=== PATIENT | male | born 1960 | race Caucasian/White ===

== ENCOUNTER 2017-05-21 03:36 | Emergency (ER) | payer MEDICARE, OTHER ==
[~2017-05-21] VITALS: Ht 185.4 cm; Wt 89.0 kg
[2017-05-21] MEDS ORDERED: NITROGLYCERIN SUBLINGUAL 0.4 MG BOTTLE OF 25. SL PRN (04:00)
[2017-05-21] MEDS ORDERED: ASPIRIN 81 MG TAB.CHEW PO ONE (04:00)
[2017-05-21] MEDS ORDERED: IPRATRPIUM/ALBUTEROL 0.5/2.5MG 3 ML NEBU. NEB ONE (04:00)
[2017-05-21 04:41] LABS: BASO # 0.1 x10^3/uL (0.0-0.2); BASO % 1 % (0-3); EOS # 0.3 x10^3/uL (0.0-0.7); EOS % 3 % (0-3); HEMATOCRIT 34.1 % (39.0-53.0); HEMOGLOBIN 11.5 g/dL (13.0-17.5); LYMPH # 0.7 x10^3/uL (1.0-4.8); LYMPH % 7 % (24-48); MEAN CORPUSCULAR HEMOGLOBIN 32 pg (25-35); MEAN CORPUSCULAR HGB CONC 34 g/dL (31-37); MEAN CORPUSCULAR VOLUME 94 fL (79-100); MONO # 0.5 x10^3/uL (0.0-1.1); MONO % 5 % (0-9); NEUT # 9.1 x10^3uL (1.8-7.7); NEUT % 85 % (31-73); PLATELET COUNT 255 x10^3/uL (140-400); RED BLOOD COUNT 3.62 x10^6/uL (4.30-5.70); RED CELL DISTRIBUTION WIDTH 14.8 % (11.5-14.5); WHITE BLOOD COUNT 10.7 x10^3/uL (4.0-11.0)
[2017-05-21 05:03] LABS: ALBUMIN 3.8 g/dL (3.4-5.0); ALK PHOS 68 U/L (46-116); ALT (SGPT) 21 U/L (16-63); ANION GAP 15 (6-14); AST (SGOT) 23 U/L (15-37); BLOOD UREA NITROGEN 47 mg/dL (8-26); BUN/CREATININE RATIO 5 (6-20); CALCIUM 9.1 mg/dL (8.5-10.1); CARBON DIOXIDE 22 mmol/L (21-32); CHLORIDE 101 mmol/L (98-107); CREATININE 8.6 mg/dL (0.7-1.3); GFR 6.5; GLUCOSE 196 mg/dL (70-99); MAGNESIUM 2.1 mg/dL (1.8-2.4); POTASSIUM 4.4 mmol/L (3.5-5.1); SODIUM 138 mmol/L (136-145); TOTAL BILIRUBIN 0.3 mg/dL (0.2-1.0); TOTAL PROTEIN 7.6 g/dL (6.4-8.2)
--- NOTE | 2017-05-21 05:04 | EKG ---
[address] [address] Test Date: 2017-05-21 Test Time: 03:41:39 Pat Name: RALPH TIJERINA Department: Room: Gender: M Hourly Team Members: MYRIAM : 1960 Requested By: MATHEW COOPER Order Number: [id number] Reading MD: Measurements Intervals [place] Rate: 93 P: 84 IA: 180 QRS: -16 QRSD: 100 T: 134 QT: 388 QTc: 485 Interpretive Statements SINUS RHYTHM LEFTWARD AXIS CONSIDER LEFT VENTRICULAR HYPERTROPHY ST & T ABNORMALITY, CONSIDER HIGH LATERAL ISCHEMIA OR LEFT VENTRICULAR STRAIN ABNORMAL ECG RI6.01 Unconfirmed report No previous ECG available for comparison
[2017-05-21] MEDS ORDERED: IV NORMAL SALINE 250ML 250 ML ONE (05:10)
--- NOTE | 2017-05-21 05:48 | RAD ---
INDICATION: Hypertension, headache
No previous for comparison COMPARISON: None. TECHNIQUE: Axial CT images obtained through the head without intravenous contrast. One or more of the following individualized dose reduction techniques were utilized for this examination: 1. Automated exposure control; 2. Adjustment of the mA and/or kV according to patient size; 3. Use of iterative reconstruction technique. FINDINGS: No intracranial hemorrhage. No midline shift. Basal cisterns patents. Ventricles and sulci are globally prominent. No acute osseous abnormality. Orbits and paranasal sinuses unremarkable. Scattered foci of low attenuation within the white matter. IMPRESSION: 1. No acute intracranial hemorrhage. 2. Scattered regions of low attenuation within the white matter. Non-specific in nature but frequently secondary to chronic small vessel ischemic disease. 3. Prominence of ventricles and sulci which is frequently secondary to age related volume loss. Electronically signed by: Colton Mae MD (05/21/2017 5:45 AM) [facility]
--- NOTE | 2017-05-21 06:09 | PHYS DOC ---
Adult General Chief Complaint Chief Complaint: DYSPNEA/RESPIRATOY DISTRESS HPI HPI Patient is a 57 year old male who presents with shortness of breath. Patient reports acute onset of symptoms around 1999 this evening while at rest. Symptoms progressed this evening. Also has a single episode of substernal chest pain which was brief, completely resolved upon arrival. Denies significant lower extremity edema. He denies fevers or chills, cough, nausea, vomiting, diaphoresis. He has history of end-stage renal disease on hemodialysis Sunday/ Sunday/Sunday, reports compliance, due for dialysis in the morning. Also has history of CHF & hypertension, reports compliance with medications. Review of Systems Review of Systems Constitutional: Denies fever or chills Eyes: Denies change in visual acuity HENT: Denies nasal congestion or sore throat Respiratory: Denies cough or reports shortness of breath Cardiovascular: Reports chest pain, denies edema GI: Denies abdominal pain, nausea, vomiting, bloody stools or diarrhea : Denies dysuria or hematuria Musculoskeletal: Denies back pain or joint pain Integument: Denies rash or skin lesions Neurologic: Denies headache, focal weakness or sensory changes All other systems were reviewed and found to be within normal limits, except as documented in this note. Current Medications Current Medications Current Medications Medications (Trade) Dose Ordered Sig/Stephen Start Time Stop Time Status Last Admin Dose Admin Albuterol/ Ipratropium (Duoneb) 3 ml 1X ONCE 05/21/17 04:00 05/21/17 04:12 DC 05/21/17 04:51 3 ML Aspirin (Children'S Aspirin) 324 mg 1X ONCE 05/21/17 04:00 05/21/17 04:12 DC 05/21/17 04:52 324 MG Fentanyl Citrate (Fentanyl 2ml Vial) 50 mcg PRN Q15MIN PRN 05/21/17 05:15 05/22/17 05:14 05/21/17 05:41 50 MCG Nicardipine HCl (Cardene) 25 mg STK-MED ONCE 05/21/17 05:10 05/21/17 05:11 DC Nicardipine HCl 50 mg/Sodium Chloride 270 ml @ 0 mls/hr CONT PRN 05/21/17 05:15 05/21/17 05:29 251 MLS/HR Nitroglycerin (Nitrostat) 0.4 mg PRN Q5MIN PRN 05/21/17 04:00 05/21/17 04:55 0.4 MG Sodium Chloride 250 ml @ As Directed STK-MED ONCE 05/21/17 05:10 05/21/17 05:11 DC Allergies Allergies Allergies Coded Allergies Type Severity Reaction Last Updated Verified No Known Drug Allergies 05/21/17 No Physical Exam Physical Exam Constitutional: Well developed, well nourished, no acute distress, non-toxic appearance. HENT: Normocephalic, atraumatic, bilateral external ears normal, oropharynx moist, nose normal. Eyes: conjunctiva normal, no discharge. Neck: supple, no stridor. Cardiovascular: RRR, no murmurs Lungs & Thorax: LCTAB, no wheezing, no respiratory distress. few crackles. patient tachypneic/dyspneic at times, but able to talk nonstop for several minutes during encounter. Abdomen: soft, nontender, nondistended. Skin: Warm, dry, no erythema, no rash. Back: No tenderness. Extremities: No tenderness, 1+ edema to bilateral lower extremities, no calf tenderness Neurologic: Alert and oriented X 3, no focal deficits noted. Psychologic: Affect normal, judgement normal, mood normal. Current Patient Data Vital Signs Vital Signs Date Time Temp Pulse Resp B/P (MAP) Pulse Ox O2 Delivery O2 Flow Rate FiO2 05/21/17 04:59 99 Nasal Cannula 2.0 05/21/17 04:55 101 196/115 Lab Results Laboratory Tests Test 05/21/17 04:24 White Blood Count 10.7 x10^3/uL (4.0-11.0) Red Blood Count 3.62 x10^6/uL (4.30-5.70) L Hemoglobin 11.5 g/dL (13.0-17.5) L Hematocrit 34.1 % (39.0-53.0) L Mean Corpuscular Volume 94 fL (79-100) Mean Corpuscular Hemoglobin 32 pg (25-35) Mean Corpuscular Hemoglobin Concent 34 g/dL (31-37) Red Cell Distribution Width 14.8 % (11.5-14.5) H Platelet Count 255 x10^3/uL (140-400) Neutrophils (%) (Auto) 85 % (31-73) H Lymphocytes (%) (Auto) 7 % (24-48) L Monocytes (%) (Auto) 5 % (0-9) Eosinophils (%) (Auto) 3 % (0-3) Basophils (%) (Auto) 1 % (0-3) Neutrophils # (Auto) 9.1 x10^3uL (1.8-7.7) H Lymphocytes # (Auto) 0.7 x10^3/uL (1.0-4.8) L Monocytes # (Auto) 0.5 x10^3/uL (0.0-1.1) Eosinophils # (Auto) 0.3 x10^3/uL (0.0-0.7) Basophils # (Auto) 0.1 x10^3/uL (0.0-0.2) Prothrombin Time 11.0 SEC (9.4-11.4) Prothrombin Time INR 1.1 (0.9-1.1) Sodium Level 138 mmol/L (136-145) Potassium Level 4.4 mmol/L (3.5-5.1) Chloride Level 101 mmol/L (98-107) Carbon Dioxide Level 22 mmol/L (21-32) Anion Gap 15 (6-14) H Blood Urea Nitrogen 47 mg/dL (8-26) H Creatinine 8.6 mg/dL (0.7-1.3) H Estimated GFR (Cockcroft-Gault) 6.5 BUN/Creatinine Ratio 5 (6-20) L Glucose Level 196 mg/dL (70-99) H Calcium Level 9.1 mg/dL (8.5-10.1) Magnesium Level 2.1 mg/dL (1.8-2.4) Total Bilirubin 0.3 mg/dL (0.2-1.0) Aspartate Amino Transferase (AST) 23 U/L (15-37) Alanine Aminotransferase (ALT) 21 U/L (16-63) Alkaline Phosphatase 68 U/L (46-116) Troponin I Quantitative 0.241 ng/mL (0-0.055) H FL-Uib-J-Type Natriuretic Peptide > 51415 pg/mL (0-124) H Total Protein 7.6 g/dL (6.4-8.2) Albumin 3.8 g/dL (3.4-5.0) Albumin/Globulin Ratio 1.0 (1.0-1.7) EKG EKG interpreted by me: NSR rate 93, no ST elevation, T waves inverted without ST depression in 1 & aVL, normal intervals, no ectopy.[] Radiology/Procedures Radiology/Procedures CXR, portable: interpreted by me: cardiomegaly, pulmonary edema.[] Course & Med Decision Making Course & Med Decision Making Pertinent Labs and Imaging studies reviewed. (See chart for details) The patient presents with shortness of breath. He was requiring oxygen 4 L by nasal cannula which is unusual for him. Appears quite dyspneic and tachypneic at times, but able to complete extensive monologue without really developing any symptoms. Blood pressure markedly elevated greater than 200s over 110s. Administered DuoNeb, aspirin and sublingual nitroglycerin. Recommended initiation of nitroglycerin drip when his blood pressure remained elevated. He refused nitro drip, stated in the past it had made him very ill. I think this is the best treatment for pulmonary edema and hypertensive emergency, but at this time will initiate Cardene drip which the patient agrees to receive. Chest x-ray shows pulmonary edema, troponin elevated. Recommend transfer to [facility] for urgent dialysis and ongoing management of blood pressure. Patient agrees with plan of care. Discussed with Dr. Pablito flowers to accept transfer for admission. The patient is being transferred in guarded condition. [] Dragon Disclaimer Dragon Disclaimer This electronic medical record was generated, in whole or in part, using a voice recognition dictation system. Departure Departure: Impression: Primary Impression: Pulmonary edema Additional Impressions: Acute exacerbation of congestive heart failure Elevated troponin Hypertensive emergency Disposition: XFER OTHER Condition: GUARDED Referrals: NON,STAFF (PCP) Problem Qualifiers MATHEW COOPER MD May 21, 2017 06:08
[2017-05-21 07:00] VITALS: BP 131/67
--- NOTE | 2017-05-21 07:13 | RAD ---
Portable chest, 05/21/2017: History: COPD, shortness of breath There is been a previous median sternotomy. A left-sided transvenous pacing device is in place with a single lead extending into the right ventricle. The heart is mildly enlarged. The pulmonary vascularity is prominent. There are moderate, predominantly interstitial opacities in the lungs. There is no evidence of pleural fluid. IMPRESSION: Moderate predominantly interstitial infiltrates most compatible with pulmonary edema due to congestive heart failure.
== END 2017-05-21 07:40 | disposition short-term general hospital (02) ==
LOC: ER 03:36
DX: I13.2 Hypertensive heart and chronic kidney disease with heart failure and with stage 5 chronic kidney disease, or end stage renal disease (principal); I50.9 Heart failure, unspecified; N18.6 End stage renal disease; I16.1 Hypertensive emergency; R79.89 Other specified abnormal findings of blood chemistry; Z99.2 Dependence on renal dialysis
CPT/HCPCS: 36415; 70450; 71010; 80053; 83735; 83880; 84484; 85025; 85610; 93005; 94640; 96365; 96366; 96375; 99285; J3010; J7050; J7620

== ENCOUNTER 2019-05-12 04:26 | Emergency (ER) | payer MEDICARE ==
[~2019-05-12] VITALS: Ht 185.4 cm; Wt 89.0 kg
[~2019-05-12 04:26] MED LIST: ALBU2.5V5 NEB; ALPR0.254 PO; AMLO5TAB10 PO; ASCO500T3 PO; ASPI-612 PO; ATOR20TA58 PO; CALC667S PO; CARV12.547 PO; CLON1PAT3 TD; GLIM4TAB4 PO; HYDR2TAB31 PO; LOSA100T14 PO; MELA3TAB56 PO; NITR0.3T5 SL; OXYC-317 PO; OXYC20TA PO; SERT100T PO; SEVE800T9 PO; TIOT18CA IH
--- NOTE | 2019-05-12 04:35 | PHYS DOC ---
Past History Past Medical History: Anxiety, CAD, CHF, COPD, Diabetes, GI Bleed, Hypertension, NE, Renal Failure, Other Past Surgical History: Coronary Bypass Surgery, Other Alcohol Use: None Drug Use: None Adult General Chief Complaint Chief Complaint: ".. I am just sick... nauseate.. vomiting.. I got a fever.. " I am just fucking sick.. " HPI HPI Patient is a 59 year old male who presents with above history and complaints of fever and chills. Patient also having bouts of nausea and dry heaves. Pt. has hx multiple medical issues. Gets hemodialysis on Wednesdays and Sunday .Pt somewhat a poor historian. Patient denies any specific ill contacts. No recent travel. Patient did not get dialysis on Sunday is due for dialysis this Sunday. Pt. states he has been taking meds as directed. Pt. report taking ASA today. No Tylenol for fever. Pt. complaints of increased edema and pain in Rt. leg. Review of Systems Review of Systems Constitutional: History of fever or chills [] Eyes: Denies change in visual acuity, redness, or eye pain [] HENT: Denies nasal congestion or sore throat [] Respiratory: History of cough and shortness of breath [] Cardiovascular: No additional information not addressed in HPI [] GI: Denies abdominal pain, . History of nausea, vomiting, . The patient denies bloody stools or diarrhea [] : Denies dysuria or hematuria [] Musculoskeletal: Denies back pain or joint pain []Rt. leg pain. Integument: Denies rash or skin lesions [] Neurologic: Denies headache, focal weakness or sensory changes [] Endocrine: Denies polyuria or polydipsia [] All other systems were reviewed and found to be within normal limits, except as documented in this note. Family History Family History Noncontributory Current Medications Current Medications See Nursing for home meds. Allergies Allergies Allergies Coded Allergies Type Severity Reaction Last Updated Verified No Known Drug Allergies 05/21/17 No Physical Exam Physical Exam Constitutional: Moderately acute distress, non-toxic appearance. [] HENT: Normocephalic, atraumatic, bilateral external ears normal, oropharynx moist, mild pharyngeal injection, no oral exudates, nose injected turbinates and clear rhinorrhea Eyes: PERRLA, EOMI, conjunctiva normal, no discharge. [] Neck: Normal range of motion, no tenderness, supple, no stridor. [] Cardiovascular: Tachycardia Heart rate regular rhythm, no murmur []PMI to the left Lungs & Thorax: Bilateral breath sounds equal apex with scattered wheezes throughout auscultation []. Has pacer, Has crackles throughout bases. . Old surgery scar Abdomen: Bowel sounds normal, soft, no tenderness, no masses, no pulsatile masses. [] Old surgery scar Skin: Warm, dry, right leg erythema, right leg rash. [] Back: No tenderness, no CVA tenderness. [] Extremities: Right leg tenderness, no cyanosis, no clubbing, moves ext. on request., bilateral ankle edema. [] Right leg more edema than left. Poor dorsal pedis pulses. Shunt in right arm has good thrill Neurologic: Sedate but oriented X 3, with noxious stimuli, moves extremities on request , decreased plantar sensory function, right sided weakness-chronic Psychologic: Affect flat, judgement normal, mood depressed. EKG EKG My interpretation of EKG shows a sinus tachycardia 111 bpm. Leftward axis. Some nonspecific anterior septal changes. Bimodal P-wave's.[] Radiology/Procedures Radiology/Procedures My interpretation of chest x-ray shows cardiomegaly with patchy interstitial infiltrates consistent with pulmonary edema. Pacer. Post sternal wires. Similar to prior x-ray on file[] Course & Med Decision Making Course & Med Decision Making Pertinent Labs and Imaging studies reviewed. (See chart for details) Discussed presentation, testing and tx. plan with Dr. Antonio. Pt to be transfer to [facility] for further eval. and tx. To get dialysis for end-stage renal disease. Endorse patient at shift change to Dr. Agarwal- he will monitor patient until transferred to [facility] Dr. Antonio Impression: 1. Fever 2. Leukocytosis at 18.6 3. Anemia 10.4 hemoglobin 4. End-stage renal disease- dialysis on Wednesdays and Fridays ( Bun 33/creat 5.2) 5. Pulmonary edema 6. Elevated troponin 0.101 7. DM = Gluc 184 8. Rt. leg Cellulitis 9. Anemia Hgb. 10.,4 10 Malnutrition Alb. 2.9 12. Elevated D-dimer 9.71 13. SIRS 14. Hx COPD [] Dragon Disclaimer Dragon Disclaimer This electronic medical record was generated, in whole or in part, using a voice recognition dictation system. Departure Departure: Disposition: 01 HOME/RESIDENCE PRIOR TO ADM Condition: STABLE Referrals: NON,STAFF (PCP) Flaco Disclaimer This chart was dictated in whole or in part using Voice Recognition software in a busy, high-work load, and often noisy Emergency Department environment. It may contain unintended and wholly unrecognized errors or omissions. Dragon Disclaimer This chart was dictated in whole or in part using Voice Recognition software in a busy, high-work load, and often noisy Emergency Department environment. It may contain unintended and wholly unrecognized errors or omissions. GRETCHEN SCHULTZ MD May 12, 2019 04:35
[2019-05-12] MEDS ORDERED: VANCOMYCIN 1 GM in IV NORMAL SALINE 250ML 250 ML IV ONE ×2 (04:45→05:15)
--- NOTE | 2019-05-12 04:57 | EKG ---
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
[2019-05-12] MEDS ORDERED: IV RINGERS SOLUTION,LACTATED 1,000 ML IV SCH (05:15)
[2019-05-12] MEDS ORDERED: IPRATRPIUM/ALBUTEROL 0.5/2.5MG 3 ML NEBU. NEB ONE (05:15)
[2019-05-12] MEDS ORDERED: methylPREDNISolone SOD SUCC PF 125 MG/2 ML VIAL. IM ONE (05:15)
[2019-05-12] MEDS ORDERED: FAMOTIDINE 20 MG/2 ML VIAL IVP ONE (05:15)
[2019-05-12] MEDS ORDERED: ACETAMINOPHEN 500 MG TABLET PO ONE (05:15)
[2019-05-12] MEDS ORDERED: cefTRIAXone IM 1 GM VIAL IM ONE (05:15)
[2019-05-12] MEDS ORDERED: ONDANSETRON ODT 4 MG TAB.RAPDIS PO ONE (05:30)
[2019-05-12] MEDS ORDERED: IV NORMAL SALINE 1,000ML 1,000 ML IV ONE (05:30)
[2019-05-12] MEDS ORDERED: IV NORMAL SALINE 500ML 500 ML ONE (05:44)
[2019-05-12] MEDS ORDERED: VANCOMYCIN 1 GM VIAL. ONE (05:44)
[2019-05-12] MEDS ORDERED: VANCOMYCIN 1.5 GM in IV NORMAL SALINE 500ML 500 ML IV ONE (06:00)
[2019-05-12 06:05] LABS: BASO # 0.1 x10^3/uL (0.0-0.2); BASO % 0 % (0-3); EOS % 0 % (0-3); HEMATOCRIT 32.3 % (39.0-53.0); HEMOGLOBIN 10.4 g/dL (13.0-17.5); LYMPH # 0.4 x10^3/uL (1.0-4.8); LYMPH % 2 % (24-48); MEAN CORPUSCULAR HEMOGLOBIN 29 pg (25-35); MEAN CORPUSCULAR HGB CONC 32 g/dL (31-37); MEAN CORPUSCULAR VOLUME 89 fL (79-100); MONO % 5 % (0-9); NEUT # 17.1 x10^3uL (1.8-7.7); NEUT % 92 % (31-73); PLATELET COUNT 361 x10^3/uL (140-400); RED BLOOD COUNT 3.61 x10^6/uL (4.30-5.70); RED CELL DISTRIBUTION WIDTH 16.9 % (11.5-14.5); WHITE BLOOD COUNT 18.6 x10^3/uL (4.0-11.0)
[2019-05-12 06:17] LABS: ALBUMIN 2.9 g/dL (3.4-5.0); CALCIUM 8.3 mg/dL (8.5-10.1); CREATININE 5.2 mg/dL (0.7-1.3); DIRECT BILIRUBIN 0.3 mg/dL (0.0-0.2); GFR 11.5; MAGNESIUM 1.5 mg/dL (1.8-2.4); POTASSIUM 3.7 mmol/L (3.5-5.1); TOTAL BILIRUBIN 0.6 mg/dL (0.2-1.0); TOTAL PROTEIN 7.2 g/dL (6.4-8.2)
[2019-05-12 06:20] LABS: BGAS PH 7.64 (7.35-7.46)
[2019-05-12 06:28] LABS: % BANDS 11 % (0-9); % LYMPHS 1 % (24-48); % MONOS 5 % (0-10); % SEGS 83 % (35-66)
[2019-05-12 06:29] LABS: ANISOCYTOSIS SLIGHT; PLT ESTIMATE ADEQUATE (ADEQUATE); POLYCHROMASIA SLIGHT
[2019-05-12 06:30] LABS: TOXIC GRANULATION SLIGHT
[2019-05-12 06:31] LABS: OVALOCYTES OCC; TEAR DROP CELLS OCC
[2019-05-12] MEDS ORDERED: HEPARIN for SUB-Q USE 5,000 UNIT/ML VIAL. SQ ONE (07:00)
[2019-05-12] MEDS ORDERED: NITROGLYCERIN OINT 1 GM PACKET. TP ONE (07:00)
[2019-05-12 07:57] VITALS: BP 136/68
--- NOTE | 2019-05-12 08:13 | RAD ---
Study: PORTABLE CHEST 1V Indication: Cough. Comparison: 03/17/2019 Findings: Left chest wall pacer/AICD. Status post median sternotomy. Coronary stents noted. The cardiomediastinal silhouette is prominent in size. Plethoric central vascular structures. No large effusion. No pneumothorax or lobar consolidation. Increased interstitial markings bilaterally. Impression: Cardiomegaly and prominent central vascular structures however without findings of overt failure. Increased interstitial markings could represent a component of mild pulmonary edema and/or related to chronic lung changes but are collectively similar to the comparison. Electronically signed by: FERMÍN MENDOZA MD (05/12/2019 8:10 AM) [facility]
[2019-05-12 08:25] LABS: INFLUENZA A PATIENT NEGATIVE (NEGATIVE); INFLUENZA B PATIENT NEGATIVE (NEGATIVE)
== END 2019-05-12 08:48 | disposition short-term general hospital (02) ==
LOC: ER 04:26
DX: E11.22 Type 2 diabetes mellitus with diabetic chronic kidney disease (principal); I13.2 Hypertensive heart and chronic kidney disease with heart failure and with stage 5 chronic kidney disease, or end stage renal disease; I50.9 Heart failure, unspecified; N18.6 End stage renal disease; D72.829 Elevated white blood cell count, unspecified; D64.9 Anemia, unspecified; R79.89 Other specified abnormal findings of blood chemistry; L03.115 Cellulitis of right lower limb; E46 Unspecified protein-calorie malnutrition; R65.10 Systemic inflammatory response syndrome (SIRS) of non-infectious origin without acute organ dysfunction; R11.2 Nausea with vomiting, unspecified; J44.9 Chronic obstructive pulmonary disease, unspecified; I25.810 Atherosclerosis of coronary artery bypass graft(s) without angina pectoris; I25.2 Old myocardial infarction; Z99.2 Dependence on renal dialysis; Z68.25 Body mass index [BMI] 25.0-25.9, adult
CPT/HCPCS: 36415; 36600; 71045; 80048; 80076; 82550; 82803; 83605; 83690; 83735; 83880; 84443; 84484; 85007; 85025; 85379; 85610; 85651; 85730; 87040; 87804; 93005; 94640; 96361; 96365; 96366; 96372; 96375; 99285; J0696; J1644; J2930; J3370; J3490; J7040; J7620; J7030

== ENCOUNTER 2019-07-13 05:56 | Emergency (ER) | payer MEDICARE ==
[~2019-07-13] VITALS: Ht 182.9 cm; Wt 92.5 kg
[~2019-07-13 05:56] MED LIST changes: -GLIM4TAB4 PO; +GLIM4TAB8 PO
[2019-07-13] MEDS ORDERED: IPRATROPIUM BROMIDE 0.5 MG/2.5 ML NEBU. ONE (06:17)
[2019-07-13] MEDS ORDERED: IPRATRPIUM/ALBUTEROL 0.5/2.5MG 3 ML NEBU. NEB ONE (06:30)
[2019-07-13] MEDS ORDERED: oxyCODONE/APAP 10/325 1 TAB TABLET PO ONE ×2 (06:45→08:00)
--- NOTE | 2019-07-13 06:47 | RAD ---
EXAM: AP View of the chest DATE: 07/13/2019 6:16 AM INDICATION: Shortness of air COMPARISON: 05/12/2019, 05/21/2017 FINDINGS: Cardiac generator pack obscures a portion of the left chest with leads in stable position. The heart is mildly enlarged. Mediastinal and hilar contours are stable. Patchy opacities medial right lung base likely atelectasis. Bilateral interstitial prominence. Trace left pleural effusion. No pneumothorax. IMPRESSION: 1. Bilateral interstitial prominence with trace left pleural effusion and cardiomegaly may be seen with pulmonary edema. 2. Patchy opacities medial right lung base are favored to represent atelectasis. Electronically signed by: Chester Hemphill MD (07/13/2019 6:44 AM) [facility]
[2019-07-13 08:03] LABS: BASO % 0 % (0-3); EOS # 0.5 x10^3/uL (0.0-0.7); EOS % 5 % (0-3); HEMATOCRIT 35.4 % (39.0-53.0); HEMOGLOBIN 11.4 g/dL (13.0-17.5); LYMPH # 0.9 x10^3/uL (1.0-4.8); LYMPH % 10 % (24-48); MEAN CORPUSCULAR HEMOGLOBIN 29 pg (25-35); MEAN CORPUSCULAR HGB CONC 32 g/dL (31-37); MEAN CORPUSCULAR VOLUME 91 fL (79-100); MONO # 0.9 x10^3/uL (0.0-1.1); MONO % 10 % (0-9); NEUT # 6.8 x10^3uL (1.8-7.7); NEUT % 75 % (31-73); PLATELET COUNT 256 x10^3/uL (140-400); RED CELL DISTRIBUTION WIDTH 17.6 % (11.5-14.5)
[2019-07-13 08:10] LABS: CREATININE 8.3 mg/dL (0.7-1.3); GFR 6.7; POTASSIUM 4.2 mmol/L (3.5-5.1)
[2019-07-13 08:24] LABS: ALBUMIN 3.4 g/dL (3.4-5.0); ALBUMIN/GLOBULIN RATIO 0.7 (1.0-1.7); TOTAL BILIRUBIN 0.5 mg/dL (0.2-1.0)
--- NOTE | 2019-07-13 08:26 | PHYS DOC ---
Past History Past Medical History: Anxiety, CAD, CHF, COPD, Diabetes, GI Bleed, Hypertension, MD, Renal Disease, Renal Failure, Vascular Disease, Other Additional Past Medical Histor: hx of hyperkalemia; wound rt heel Past Surgical History: Coronary Bypass Surgery, Other Additional Past Surgical Histo: RIGHT ARM FISTULA, DUAL PACEMAKER; lillie leg fem- pop bypass Alcohol Use: None Drug Use: None Adult General Chief Complaint Chief Complaint: DYSPNEA/RESPIRATOY DISTRESS HPI HPI Patient is a 59-year-old male who presents with shortness of breath. Patient has history of end-stage renal disease on dialysis, CAD, MD, CABG, for vascular disease, CHF and nonhealing right heal wound presents with progressive shortness breath over the past 12 hours especially while sleeping. Patient worse supplemental oxygen at night reports increased oxygen use. Reports feeling hot but denies fever chills, nausea vomiting and sweats. Denies productive cough, [] Review of Systems Review of Systems ROS as per HPI All other systems were reviewed and found to be within normal limits, except as documented in this note. Current Medications Current Medications Current Medications Medications (Trade) Dose Ordered Sig/Stephen Start Time Stop Time Status Last Admin Dose Admin Albuterol/ Ipratropium (Duoneb) 3 ml 1X ONCE 07/13/19 06:30 07/13/19 06:35 DC 07/13/19 06:24 3 ML Ipratropium [place] (Atrovent) 0.5 mg STK-MED ONCE 07/13/19 06:17 07/13/19 06:17 DC Oxycodone/ Acetaminophen (Percocet 10/325) 1 tab 1X ONCE 07/13/19 08:00 07/13/19 08:01 UNV Allergies Allergies Allergies Coded Allergies Type Severity Reaction Last Updated Verified NSAIDS (Non-Steroidal Anti-Inflamma Adverse Reaction Severe 07/13/19 Yes Physical Exam Physical Exam Constitutional: Chronically ill-appearing, increased work of breathing but no distress. Sitting upright in bed.. [] HENT: Normocephalic, atraumatic, bilateral external ears normal, oropharynx moist,, nose normal. [] Eyes: PERRLA, EOMI, conjunctiva normal, no discharge. [] Neck: Normal range of motion, no tenderness, supple, no stridor. [] Cardiovascular:Heart rate regular rhythm, no murmur [] Lungs & Thorax: Mild tachypnea, coarse rales throughout lung [place][] Abdomen: Bowel sounds normal, soft, no tenderness. [] Skin: Warm, dry. [] Back: No tenderness, no CVA tenderness. [] Extremities: Right leg swelling, Righl ulcer.[] Neurologic: Alert and oriented X 3, normal motor function, normal sensory function, no focal deficits noted. [] Psychologic: Affect normal, judgement normal, mood normal. [] Current Patient Data Vital Signs Vital Signs Date Time Temp Pulse Resp B/P (MAP) Pulse Ox O2 Delivery O2 Flow Rate FiO2 07/13/19 06:22 97 Nasal Cannula 2.0 07/13/19 06:00 98.0 91 36 191/103 (132) Lab Results Laboratory Tests Test 07/13/19 06:18 07/13/19 07:37 Glucose (Fingerstick) 180 mg/dL (70-99) H White Blood Count 9.0 x10^3/uL (4.0-11.0) Red Blood Count 3.90 x10^6/uL (4.30-5.70) L Hemoglobin 11.4 g/dL (13.0-17.5) L Hematocrit 35.4 % (39.0-53.0) L Mean Corpuscular Volume 91 fL (79-100) Mean Corpuscular Hemoglobin 29 pg (25-35) Mean Corpuscular Hemoglobin Concent 32 g/dL (31-37) Red Cell Distribution Width 17.6 % (11.5-14.5) H Platelet Count 256 x10^3/uL (140-400) Neutrophils (%) (Auto) 75 % (31-73) H Lymphocytes (%) (Auto) 10 % (24-48) L Monocytes (%) (Auto) 10 % (0-9) H Eosinophils (%) (Auto) 5 % (0-3) H Basophils (%) (Auto) 0 % (0-3) Neutrophils # (Auto) 6.8 x10^3uL (1.8-7.7) Lymphocytes # (Auto) 0.9 x10^3/uL (1.0-4.8) L Monocytes # (Auto) 0.9 x10^3/uL (0.0-1.1) Eosinophils # (Auto) 0.5 x10^3/uL (0.0-0.7) Basophils # (Auto) 0.0 x10^3/uL (0.0-0.2) Sodium Level 139 mmol/L (136-145) Potassium Level 4.2 mmol/L (3.5-5.1) Chloride Level 96 mmol/L (98-107) L Carbon Dioxide Level 28 mmol/L (21-32) Anion Gap 15 (6-14) H Blood Urea Nitrogen 40 mg/dL (8-26) H Creatinine 8.3 mg/dL (0.7-1.3) H Estimated GFR (Cockcroft-Gault) 6.7 BUN/Creatinine Ratio 5 (6-20) L Glucose Level 204 mg/dL (70-99) H Calcium Level 8.0 mg/dL (8.5-10.1) L Total Bilirubin Pending Aspartate Amino Transferase (AST) Pending Alanine Aminotransferase (ALT) Pending Alkaline Phosphatase Pending Troponin I Quantitative 0.184 ng/mL (0-0.055) H Total Protein Pending Albumin Pending Albumin/Globulin Ratio Pending EKG EKG [EKG: Sinus rhythm, rate 89, no acute ST-T wave changes, QTC 498] Radiology/Procedures Radiology/Procedures [Chest x-ray: Pulmonary vascular congestion with cardiomegaly per radiology report] Course & Med Decision Making Course & Med Decision Making Pertinent Labs and Imaging studies reviewed. (See chart for details) [Patient with shortness of breath with volume overload. Patient last completed dialysis 2 days ago. Oxycodone given for chronic leg pain. Dr. Martin accepts patient transfer to [facility]. Nephrology notified of need for dialysis.] Dragon Disclaimer Dragon Disclaimer This electronic medical record was generated, in whole or in part, using a voice recognition dictation system. Departure Departure: Impression: Primary Impression: Dyspnea Additional Impressions: Pulmonary vascular congestion End-stage renal disease on hemodialysis Disposition: ADMITTED INPATIENT Condition: STABLE Referrals: PCP,NO (PCP) Problem Qualifiers GUILLERMINA WADE DO Jul 13, 2019 08:25
[2019-07-13 09:48] VITALS: BP 171/95
--- NOTE | 2019-07-13 17:25 | EKG ---
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
== END 2019-07-13 10:20 | disposition short-term general hospital (02) ==
LOC: ER 05:56
DX: R06.82 Tachypnea, not elsewhere classified (principal); R09.89 Other specified symptoms and signs involving the circulatory and respiratory systems; N18.6 End stage renal disease; F41.9 Anxiety disorder, unspecified; I25.10 Atherosclerotic heart disease of native coronary artery without angina pectoris; I50.9 Heart failure, unspecified; J44.9 Chronic obstructive pulmonary disease, unspecified; E11.9 Type 2 diabetes mellitus without complications; I10 Essential (primary) hypertension; I25.2 Old myocardial infarction; Z98.890 Other specified postprocedural states; Z95.0 Presence of cardiac pacemaker; Z99.2 Dependence on renal dialysis; Z88.6 Allergy status to analgesic agent
CPT/HCPCS: 36415; 71045; 80053; 82947; 84484; 85025; 87040; 93005; 94640; 99285; J7620

== ENCOUNTER 2019-07-21 21:35 | Emergency (ER) | payer MEDICARE ==
[~2019-07-21] VITALS: Ht 182.9 cm; Wt 81.2 kg
--- NOTE | 2019-07-21 21:44 | PHYS DOC ---
Past History Past Medical History: Anxiety, CAD, CHF, COPD, Diabetes, GI Bleed, Hypertension, CA, Renal Disease, Renal Failure, Vascular Disease, Other Additional Past Medical Histor: hx of hyperkalemia; wound rt heel Past Surgical History: Coronary Bypass Surgery, Other Additional Past Surgical Histo: RIGHT ARM FISTULA, DUAL PACEMAKER; lillie leg fem- pop bypass Alcohol Use: None Drug Use: None Adult General Chief Complaint Chief Complaint: " .. My feet hurt. ".." I hurting so bad tonight... ".. I know I got bad circulation.. I ve had stents and repair .. HPI HPI Patient is a 59 year old male who presents with above hx and complaints of bilateral pain in feet. Patient rates his lower leg pain as 20 out of 10. Patient has significant history for severe peripheral vascular disease. Patient also has end-stage renal failure with dialysis treatment 3 x week. Patient recently discharge from [facility] after increased weakness and and pulmonary edema.. Patient has no history of COPD, hypertension, diabetes, and prior episodes of DVT and arterial stenosis arteries and lower legs. Patient does have a splint on right lower leg. Patient currently bilateral lower legs have minimal capillary refill in toes. Patient states he's been compliant with his medications. Patient states he no longer smokes. Follow s with Dr. Espinosa Review of Systems Review of Systems Constitutional: Denies fever or chills [] Eyes: Denies change in visual acuity, redness, or eye pain [] HENT: Denies nasal congestion or sore throat [] Respiratory: Denies cough or shortness of breath [] Cardiovascular: No additional information not addressed in HPI [] GI: Denies abdominal pain, nausea, vomiting, bloody stools or diarrhea [] : Denies dysuria or hematuria [] Musculoskeletal: Denies back pain or joint pain []complaints of severe lower leg and feet pain Integument: Denies rash or skin lesions [] Neurologic: Denies headache, focal weakness or sensory changes [] Endocrine: Denies polyuria or polydipsia [] All other systems were reviewed and found to be within normal limits, except as documented in this note. Family History Family History Noncontributory to presentation Current Medications Current Medications See nursing for home medications Allergies Allergies Allergies Coded Allergies Type Severity Reaction Last Updated Verified NSAIDS (Non-Steroidal Anti-Inflamma Adverse Reaction Severe 07/13/19 Yes Physical Exam Physical Exam Constitutional: in acute distress, non-toxic appearance. [] HENT: Normocephalic, atraumatic, bilateral external ears normal, oropharynx moist, no oral exudates, nose normal. [] Eyes: PERRLA, EOMI, conjunctiva normal, no discharge. [] Neck: Normal range of motion, no tenderness, supple, no stridor. [] Cardiovascular: Tachycardia Heart rate regular rhythm, no murmur [] Lungs & Thorax: Bilateral breath sounds equal apex with scattered wheezes on auscultation [] Abdomen: Bowel sounds normal, soft, no tenderness, no masses, no pulsatile masses. Old surgical scar Skin: Warm, dry, no erythema, no rash. [] Venous stasis changes in lower limbs Back: No tenderness, no CVA tenderness. [] Extremities: Bilateral lower limb tenderness, no cyanosis, no clubbing, ROM intact, right leg edema. [] Has good thrill in right forearm AV shunt Neurologic: Alert and oriented X 3, moves all extremities on request, decreased distal sensory function in feet, no new focal deficits per patient Psychologic: Affect anxious, judgement normal, mood depressed. EKG EKG Dilatation EKG shows a sinus rhythm at 78 bpm. Does have left axis deviation and a fascicular block. No findings acute STEMI of contralateral changes. Does have slightly prolonged QT interval at 4:30 milliseconds and QTC at 497 ms Radiology/Procedures Radiology/Procedures [][place] [address] IMAGING REPORT Signed PATIENT: RALPH TIJERINA ACCOUNT: [id number] : 1960 LOCATION: ER AGE: 59 SEX: M EXAM STATUS: PRE ER ORD. PHYSICIAN: GRETCHEN SCHULTZ MD REASON: RENAL FAILURE, DIALYSIS, SWELLING. PROCEDURE: CHEST PA & LATERAL CHEST PA LATERAL Technique: PA and lateral views of the chest were obtained. Clinical History: Renal failure and swelling Comparison: July 13, 2019. Findings: The heart is top normal limits in size. The pulmonary vessels appear preserved reticular opacities of lungs. Median sternotomy wires and left-sided defibrillator again seen. The lungs are hyperinflated. Impression: Reticular opacities unchanged since the recent chest x-ray but slightly increased from May 24, 2018. This is likely chronic pulmonary fibrosis with superimposition of mild fluid overload versus atypical pneumonia. Electronically signed by: Chauncey Combs III, MD (07/22/2019 12:03 AM) [id number] DICTATED AND SIGNED BY: CHAUNCEY COMBS III, MD DATE: 07/22/19 0003 CC: GRETCHEN SCHULTZ MD; SUDHAKAR ESPINOSA ~ Ultrasound and Doppler pending at shift change Course & Med Decision Making Course & Med Decision Making Pertinent Labs and Imaging studies reviewed. (See chart for details) Ultrasound and Doppler pending at shift change as well as some labs-CBC Dr. Archer will make final disposition on patient.- Impression- 1. Complaints of bilateral lower leg pain-suspect secondary to spur severe peripheral vascular disease 2. History of severe Peripheral vascular disease and lower limbs 3. End-stage renal disease with dialysis 3 times a week 4. Pulmonary edema 5. CHF-BNP 40,709 6. Elevated d-dimer 9.71 7. Review and 40 creatinine 8.3 8. Diabetes glucose 264 [] Dragon Disclaimer Dragon Disclaimer This electronic medical record was generated, in whole or in part, using a voice recognition dictation system. Departure Departure: Disposition: HOME/RESIDENCE PRIOR TO ADM Condition: STABLE Referrals: SUDHAKAR ESPINOSA (PCP) Flaco Disclaimer This chart was dictated in whole or in part using Voice Recognition software in a busy, high-work load, and often noisy Emergency Department environment. It may contain unintended and wholly unrecognized errors or omissions. GRETCHEN SCHULTZ MD Jul 21, 2019 21:44
[2019-07-21] MEDS ORDERED: ENOXAPARIN ** NOTE DOSE ** SYRINGE SQ ONE (23:15)
[2019-07-21] MEDS ORDERED: IV RINGERS SOLUTION,LACTATED 1,000 ML IV SCH (23:30)
[2019-07-21] MEDS ORDERED: MORPHINE SULFATE 10 MG/ML SYRINGE. SQ ONE (23:30)
[2019-07-21] MEDS ORDERED: HEPARIN 25,000UTS/250ML PREMIX 250 ML IV PRN (23:45)
[2019-07-21] MEDS ORDERED: HEPARIN for IV BOLUS 10,000 UNIT/10 ML VIAL. IV PRN ×3 (23:45)
[2019-07-21] MEDS ORDERED: ANTI-COAG MONITOR BY PHARMACY. MC PRN (23:45)
[2019-07-22] MEDS ORDERED: HEPARIN for IV BOLUS 10,000 UNIT/10 ML VIAL. IV ONE
--- NOTE | 2019-07-22 00:06 | RAD ---
CHEST PA LATERAL Technique: PA and lateral views of the chest were obtained. Clinical History: Renal failure and swelling Comparison: July 13, 2019. Findings: The heart is top normal limits in size. The pulmonary vessels appear preserved reticular opacities of lungs. Median sternotomy wires and left-sided defibrillator again seen. The lungs are hyperinflated. Impression: Reticular opacities unchanged since the recent chest x-ray but slightly increased from May 24, 2018. This is likely chronic pulmonary fibrosis with superimposition of mild fluid overload versus atypical pneumonia. Electronically signed by: Yonas Soares III, MD (07/22/2019 12:03 AM) [id number]
--- NOTE | 2019-07-22 02:05 | EKG ---
[address] [address] Test Date: 2019-07-22 Test Time: 01:10:31 Pat Name: RALPH TIJERINA Department: Room: Gender: M Manager Property: : 1960 Requested By: GRETCHEN SCHULTZ Order Number: [id number] Reading MD: Measurements Intervals Sawyer Rate: 78 P: -61 DC: 148 QRS: -38 QRSD: 102 T: 152 QT: 432 QTc: 497 Interpretive Statements SINUS RHYTHM ABNORMAL LEFT AXIS DEVIATION LEFT ANTERIOR FASCICULAR BLOCK LVH WITH REPOLARIZATION ABNORMALITY QRS(T) CONTOUR ABNORMALITY CONSIDER ANTEROSEPTAL MYOCARDIAL DAMAGE PROLONGED QT ABNORMAL ECG RI6.01 No previous ECG available for comparison
[2019-07-22] MEDS ORDERED: MORPHINE SULFATE 10 MG/ML SYRINGE. SQ ONE (05:45)
[2019-07-22 07:20] LABS: BASO # 0.1 x10^3/uL (0.0-0.2); BASO % 1 % (0-3); EOS # 0.4 x10^3/uL (0.0-0.7); EOS % 5 % (0-3); HEMOGLOBIN 12.4 g/dL (13.0-17.5); LYMPH # 1.2 x10^3/uL (1.0-4.8); LYMPH % 13 % (24-48); MEAN CORPUSCULAR HEMOGLOBIN 29 pg (25-35); MEAN CORPUSCULAR HGB CONC 32 g/dL (31-37); MEAN CORPUSCULAR VOLUME 91 fL (79-100); MONO % 12 % (0-9); NEUT # 5.9 x10^3uL (1.8-7.7); NEUT % 68 % (31-73); PLATELET COUNT 346 x10^3/uL (140-400); RED BLOOD COUNT 4.29 x10^6/uL (4.30-5.70); WHITE BLOOD COUNT 8.7 x10^3/uL (4.0-11.0)
[2019-07-22 07:32] LABS: ANION GAP 17 (6-14); BLOOD UREA NITROGEN 44 mg/dL (8-26); CALCIUM 8.4 mg/dL (8.5-10.1); CARBON DIOXIDE 25 mmol/L (21-32); CHLORIDE 100 mmol/L (98-107); CREATININE 7.1 mg/dL (0.7-1.3); GLUCOSE 129 mg/dL (70-99); SODIUM 142 mmol/L (136-145)
[2019-07-22 07:44] LABS: ALBUMIN 3.7 g/dL (3.4-5.0); ALK PHOS 136 U/L (46-116); ALT (SGPT) 33 U/L (16-63); AST (SGOT) 26 U/L (15-37); DIRECT BILIRUBIN 0.2 mg/dL (0.0-0.2); LIPASE 308 U/L (73-393); MAGNESIUM 2.2 mg/dL (1.8-2.4); TOTAL BILIRUBIN 0.6 mg/dL (0.2-1.0); TOTAL PROTEIN 8.2 g/dL (6.4-8.2)
[2019-07-22] MEDS ORDERED: MORPHINE SULFATE 2 MG/ML DISP.SYRIN. IV ONE ×2 (09:15→12:15)
--- NOTE | 2019-07-22 10:23 | RAD ---
VENOUS LOWER EXT BILATERAL History: Lower extremity pain and swelling. Comparison: None. Discussion: Multiple longitudinal and transverse high resolution real-time images of the venous system of bilateral lower extremity were obtained with color and Doppler sampling. The common femoral, superficial femoral, popliteal and proximal calf veins are all patent and demonstrate normal flow and compressibility. Normal respiratory phasicity and augmentation is present. Right lower extremity subcutaneous edema. Impression: 1. No evidence of deep vein thrombosis. Electronically signed by: Gaston Cutler DO (07/22/2019 10:20 AM) [id number]
--- NOTE | 2019-07-22 10:30 | RAD ---
DUPLEX LOWER EXTREMITY BILAT Indication: Bilateral lower extremity pain. History of femoral popliteal bypass bilaterally. Diabetes. Comparison: CT angiogram May 15, 2019. Procedure: Real-time grayscale, color flow Doppler, and Doppler spectral waveform analysis of the arterial system of the lower extremity is performed. Findings: Right lower extremity: Significant elevated velocity within the right common femoral artery with monophasic waveform just proximal to the graft. Elevated velocity within the proximal right bypass graft measures 227 cm/s. The graft is patent. Monophasic waveform within the right popliteal and posterior tibial arteries. Elevated velocity within the right posterior tibial artery measures 191 cm/s, indicating 30-49 percent stenosis. The distal posterior tibial, peroneal, anterior tibial and dorsalis pedis arteries are not identified. [place] right superficial femoral artery. Left lower extremity: Mildly elevated velocity within the left common femoral artery measures 1 85 cm/s. Patent left deep femoral artery. Patent left artery bypass graft. Patent left popliteal and posterior tibial arteries. Elevated velocity within the left anterior tibial artery measures 170 cm/s, indicating 30-49 percent stenosis. The left peroneal and dorsalis pedis arteries are not identified. [place] left superficial femoral artery. IMPRESSION: 1. Patent bilateral femoral popliteal artery bypass grafts. 2. Elevated velocity within the right common femoral artery just proximal to the bypass graft, indicating 95-99 percent stenosis. 3. 50-75 percent stenosis of the right proximal bypass graft. 4. Right posterior tibial, peroneal, anterior tibial and dorsalis pedis arteries not well identified, may indicate slow flow or occlusion. CT angiogram can further assess if clinically indicated. 5. Left peroneal and dorsalis pedis arteries not identified, may indicate slow flow or occlusion. Electronically signed by: Gaston Cutlre DO (07/22/2019 10:27 AM) [email or web address]
[2019-07-22 12:23] VITALS: BP 181/98
== END 2019-07-22 13:05 | disposition short-term general hospital (02) ==
LOC: ER 21:35
DX: M79.671 Pain in right foot (principal); M79.672 Pain in left foot; J81.1 Chronic pulmonary edema; R79.1 Abnormal coagulation profile; I13.2 Hypertensive heart and chronic kidney disease with heart failure and with stage 5 chronic kidney disease, or end stage renal disease; E11.22 Type 2 diabetes mellitus with diabetic chronic kidney disease; N18.6 End stage renal disease; I50.9 Heart failure, unspecified; Z99.2 Dependence on renal dialysis; I25.10 Atherosclerotic heart disease of native coronary artery without angina pectoris; J44.9 Chronic obstructive pulmonary disease, unspecified; I25.2 Old myocardial infarction; Z95.1 Presence of aortocoronary bypass graft; Z88.8 Allergy status to other drugs, medicaments and biological substances
CPT/HCPCS: 36415; 71046; 80048; 80076; 82550; 83690; 83735; 83880; 84443; 84484; 85025; 85379; 85610; 85730; 93005; 93925; 93970; 94640; 96372; 96374; 96375; 96376; 99285; J1644; J2270; J7120

== ENCOUNTER 2019-07-26 19:39 | Emergency (ER) | payer MEDICARE ==
[~2019-07-26] VITALS: Ht 182.9 cm; Wt 96.3 kg
--- NOTE | 2019-07-26 19:44 | PHYS DOC ---
Past History Past Medical History: Anemia, Anxiety, CAD, CHF, COPD, Diabetes, GI Bleed, Hypertension, [place], Renal Disease, Renal Failure, Vascular Disease, Other Additional Past Medical Histor: hx of hyperkalemia; wound rt heel Past Surgical History: Angioplasty, Coronary Bypass Surgery, Other Additional Past Surgical Histo: RIGHT ARM FISTULA, DUAL PACEMAKER; lillie leg fem- pop bypass Alcohol Use: None Drug Use: None Adult General Chief Complaint Chief Complaint: LOWER EXTREMITY EDEMA... " I hurting so bad.. my legs.. and short of breath.. I did keep my hemodialysis.. ".." I more short of breath.. I did not get all my Hemodialysis .. treatment because my BP keep falling..." HPI HPI Patient is a 59 year old male who presents with above hx and complaints dyspnea, increased lower leg edema, increased lower leg pains, and general malaise. She has history of extensive medical issues anxiety, coronary artery disease, CHF, COPD, diabetes, GI bleeds, hypertension, myocardial infarction, renal disease on hemodialysis, peripheral vascular disease that is severe, pulmonary edema, vascular ulcer on right heel, and generalized deconditioned. Patient has multiple emergency room visits for similar presentations. Patient recently admitted at [facility] on transfer from [facility]. Patient gets hemodialysis on Wednesdays and Fridays. Patient advised this did not receive these complete dialysis treatment on Sunday because of dropping blood pressures. Patient denies noncompliance with meds or diet. Patient normally follows with Dr. Still. Patient was seen in the emergency room on 07/21 2019 by this physician at that time he had similar complaints of bilateral feet pain. Patient rates his pain as 1010 and has not had anything improved the pain. Patient has had previous stents and bypass surgeries to lower legs for peripheral vascular disease. Review of Systems Review of Systems Constitutional: Denies fever or chills [] Eyes: Denies change in visual acuity, redness, or eye pain [] HENT: Denies nasal congestion or sore throat [] Respiratory: Complaints of dyspnea and increased shortness of breath Cardiovascular: No additional information not addressed in HPI [] GI: Denies abdominal pain, nausea, vomiting, bloody stools or diarrhea [] : Denies dysuria or hematuria [] Musculoskeletal: Complaints of lower leg pain Integument: Denies rash or skin lesions [] Neurologic: Denies headache, focal weakness or sensory changes [] Endocrine: Denies polyuria or polydipsia [] All other systems were reviewed and found to be within normal limits, except as documented in this note. Family History Family History Noncontributory to presentation. Current Medications Current Medications See nursing for home meds. Allergies Allergies Allergies Coded Allergies Type Severity Reaction Last Updated Verified NSAIDS (Non-Steroidal Anti-Inflamma Adverse Reaction Severe 07/13/19 Yes Physical Exam Physical Exam Constitutional: In moderate acute distress, non-toxic appearance. [] HENT: Normocephalic, atraumatic, bilateral external ears normal, oropharynx moist, no oral exudates, nose normal. [] Eyes: PERRLA, EOMI, conjunctiva normal, no discharge. [] Neck: Normal range of motion, no tenderness, supple, no stridor. [] JVD in sitting position Cardiovascular: Irregular Heart rate and irregular regular rhythm, no murmur []PMI to the left. Bedside monitor shows occasional PVCs, PACs, and rhythm at time appears to be A. fib like. Lungs & Thorax: Bilateral breath sounds equal apex with scattered wheezing throughout auscultation . Patient [has crackles throughout with marked increase in bilateral]basilar areas. ( Sounds worse than exam on 07/21 exam. Abdomen: Bowel sounds normal, soft, no tenderness, no masses, no pulsatile masses. []Old surgery scar Skin: Warm, dry, no erythema, Veinous stasis and cyanosis in lower limbs. Back: No tenderness, no CVA tenderness. [] Extremities: Bilateral lower leg tenderness, no cyanosis, no clubbing, ROM digit due to lower leg pain, bilateral lower leg edema. [] Pulses were not palpable in the lower feet. Right leg in a splint. Has venous stasis changes. Patient A/V fistula in right forearm has good thrill. Scar on legs Neurologic: Alert and oriented X 3, normal motor function, normal sensory function, no focal deficits noted. [] Psychologic: Affect anxious, judgement normal, mood normal. [] EKG EKG My interpretation EKG shows a sinus rhythm at 84 with PVCs, PACs, left axis deviation and bundle-branch block. Does have prolonged QT interval at 442 ms[] Radiology/Procedures Radiology/Procedures [][place] [address] IMAGING REPORT Signed PATIENT: RALPH TIJERINA ACCOUNT: [id number] : 1960 LOCATION: ER AGE: 59 SEX: M EXAM STATUS: REG ER ORD. PHYSICIAN: GRETCHEN SCHULTZ MD REASON: edema PROCEDURE: PORTABLE CHEST 1V EXAM: PORTABLE CHEST 1V INDICATION: Edema. TECHNIQUE: Single view COMPARISON: July 21, 2019 chest x-ray. FINDINGS: Left chest single lead AICD is present. The heart size is borderline enlarged. Poststernotomy surgical changes are redemonstrated.. The great vessels appear unremarkable. There is no hilar or mediastinal mass. There are calcified mediastinal and left hilar lymph nodes. Lungs again demonstrate mild diffuse interstitial prominence. There is no pleural effusion or pneumothorax. There are no significant osseous abnormalities. IMPRESSION: Borderline cardiomegaly and persistent interstitial prominence, likely representing some degree of pulmonary fluid overload. Electronically signed by: Melanie Pederson MD (07/26/2019 8:39 PM) [facility] DICTATED AND SIGNED BY: MELANIE PEDERSON MD DATE: 07/26/192038 CC: GRETCHEN SCHULTZ MD; SUDHAKAR RODNEY ~ Course & Med Decision Making Course & Med Decision Making Pertinent Labs and Imaging studies reviewed. (See chart for details) Discussed presentation, testing and tx. plan with Dr. Mayberry at [facility]. Will accept pt in transfer to [facility]. Pt. transfer to [facility]- Impression: 1. Peripheral Vascular Dz- Pain 2. ESRDz with HD M/W/Sun BUN 73/Creat 8.6 3. Pulmonary Edema 4. CHF- diastolic dysfunction- BNP 35,000 5. Elevated troponin 0.069 6. Elevated D-dimer 5.69 7. DM - glucose 187 8. Anemia Hg. 10.7 9. Elevate Lipase 782 10. Appears to have narcotic seeking behaviors [] [facility] Disclaimer Dragon Disclaimer This electronic medical record was generated, in whole or in part, using a voice recognition dictation system. Departure Departure: Disposition: HOME/RESIDENCE PRIOR TO ADM Condition: STABLE Referrals: SUDHAKAR RODNEY (PCP) [facility] Disclaimer This chart was dictated in whole or in part using Voice Recognition software in a busy, high-work load, and often noisy Emergency Department environment. It may contain unintended and wholly unrecognized errors or omissions. Dragon Disclaimer This chart was dictated in whole or in part using Voice Recognition software in a busy, high-work load, and often noisy Emergency Department environment. It may contain unintended and wholly unrecognized errors or omissions. Dragon Disclaimer This chart was dictated in whole or in part using Voice Recognition software in a busy, high-work load, and often noisy Emergency Department environment. It may contain unintended and wholly unrecognized errors or omissions. GRETCHEN SCHULTZ MD Jul 26, 2019 19:44
[2019-07-26] MEDS ORDERED: IV RINGERS SOLUTION,LACTATED 1,000 ML IV SCH (19:45)
[2019-07-26] MEDS ORDERED: CLOP75TA57 PO (19:53)
[2019-07-26] MEDS ORDERED: MORPHINE SULFATE 10 MG/ML SYRINGE. ONE (19:58)
[2019-07-26] MEDS ORDERED: MORPHINE SULFATE 10 MG/ML SYRINGE. SQ ONE (20:00)
--- NOTE | 2019-07-26 20:42 | RAD ---
EXAM: PORTABLE CHEST 1V INDICATION: Edema. TECHNIQUE: Single view COMPARISON: July 21, 2019 chest x-ray. FINDINGS: Left chest single lead AICD is present. The heart size is borderline enlarged. Poststernotomy surgical changes are redemonstrated.. The great vessels appear unremarkable. There is no hilar or mediastinal mass. There are calcified mediastinal and left hilar lymph nodes. Lungs again demonstrate mild diffuse interstitial prominence. There is no pleural effusion or pneumothorax. There are no significant osseous abnormalities. IMPRESSION: Borderline cardiomegaly and persistent interstitial prominence, likely representing some degree of pulmonary fluid overload. Electronically signed by: Juvenal Pederson MD (07/26/2019 8:39 PM) [facility]
[2019-07-26 20:57] LABS: ANION GAP 18 (6-14); BLOOD UREA NITROGEN 73 mg/dL (8-26); CALCIUM 7.5 mg/dL (8.5-10.1); CARBON DIOXIDE 26 mmol/L (21-32); CHLORIDE 96 mmol/L (98-107); CREATININE 8.6 mg/dL (0.7-1.3); GFR 6.4; GLUCOSE 187 mg/dL (70-99); POTASSIUM 5.5 mmol/L (3.5-5.1); SODIUM 140 mmol/L (136-145)
[2019-07-26 20:58] LABS: BASO % 1 % (0-3); EOS # 0.3 x10^3/uL (0.0-0.7); EOS % 4 % (0-3); HEMATOCRIT 33.5 % (39.0-53.0); HEMOGLOBIN 10.7 g/dL (13.0-17.5); LYMPH # 0.8 x10^3/uL (1.0-4.8); LYMPH % 12 % (24-48); MEAN CORPUSCULAR HEMOGLOBIN 29 pg (25-35); MEAN CORPUSCULAR HGB CONC 32 g/dL (31-37); MEAN CORPUSCULAR VOLUME 92 fL (79-100); MONO # 0.6 x10^3/uL (0.0-1.1); MONO % 10 % (0-9); NEUT # 4.8 x10^3uL (1.8-7.7); NEUT % 73 % (31-73); PLATELET COUNT 251 x10^3/uL (140-400); RED BLOOD COUNT 3.64 x10^6/uL (4.30-5.70); RED CELL DISTRIBUTION WIDTH 18.1 % (11.5-14.5); WHITE BLOOD COUNT 6.5 x10^3/uL (4.0-11.0)
[2019-07-26 21:12] LABS: ALBUMIN 3.6 g/dL (3.4-5.0); ALK PHOS 107 U/L (46-116); ALT (SGPT) 23 U/L (16-63); AST (SGOT) 20 U/L (15-37); DIRECT BILIRUBIN 0.2 mg/dL (0.0-0.2); LIPASE 782 U/L (73-393); MAGNESIUM 2.2 mg/dL (1.8-2.4); TOTAL BILIRUBIN 0.3 mg/dL (0.2-1.0); TOTAL PROTEIN 8.2 g/dL (6.4-8.2)
[2019-07-26] MEDS ORDERED: oxyCODONE/APAP 10/325 1 TAB TABLET PO ONE (21:15)
[2019-07-26] MEDS ORDERED: HYDROmorphone PF 2 MG/ML VIAL IM ONE (21:15)
[2019-07-27] MEDS ORDERED: HEPARIN for IV BOLUS 10,000 UNIT/10 ML VIAL. IV ONE
[2019-07-27] MEDS ORDERED: HEPARIN 25,000UTS/250ML PREMIX 250 ML IV PRN
[2019-07-27 00:40] VITALS: BP 147/71
--- NOTE | 2019-07-27 00:53 | EKG ---
[address] [address] Test Date: 2019-07-26 Test Time: 20:02:44 Pat Name: RALPH TIJERINA Department: Room: Gender: M Measurement Operator: : 1960 Requested By: GRETCHEN SCHULTZ Order Number: [id number] Reading MD: Measurements Intervals Gregory Rate: 84 P: -60 MN: 154 QRS: -28 QRSD: 106 T: 111 QT: 422 QTc: 502 Interpretive Statements SUPRAVENTRICULAR RHYTHM INTERPOLATED ATRIAL PREMATURE COMPLEX(ES) LEFTWARD AXIS INCOMPLETE RIGHT BUNDLE BRANCH BLOCK T ABNORMALITY IN HIGH LATERAL LEADS PROLONGED QT ABNORMAL ECG RI6.01 No previous ECG available for comparison
[2019-07-27] MEDS ORDERED: HYDROmorphone PF 2 MG/ML VIAL IM ONE (01:00)
== END 2019-07-27 01:09 | disposition short-term general hospital (02) ==
LOC: ER 19:39
DX: J81.1 Chronic pulmonary edema (principal); R79.1 Abnormal coagulation profile; D64.9 Anemia, unspecified; R79.89 Other specified abnormal findings of blood chemistry; I73.9 Peripheral vascular disease, unspecified; I13.2 Hypertensive heart and chronic kidney disease with heart failure and with stage 5 chronic kidney disease, or end stage renal disease; E11.22 Type 2 diabetes mellitus with diabetic chronic kidney disease; N18.6 End stage renal disease; I50.9 Heart failure, unspecified; I25.10 Atherosclerotic heart disease of native coronary artery without angina pectoris; J44.9 Chronic obstructive pulmonary disease, unspecified; I25.2 Old myocardial infarction; Z95.1 Presence of aortocoronary bypass graft; Z88.8 Allergy status to other drugs, medicaments and biological substances
CPT/HCPCS: 36415; 71045; 80048; 80076; 82150; 82550; 83690; 83735; 83880; 84443; 84484; 85025; 85379; 85610; 85730; 93005; 96365; 96372; 96376; 99285; J1170; J1644; J2270

== ENCOUNTER 2019-09-28 23:39 | Emergency (ER) | payer MEDICARE ==
[~2019-09-28] VITALS: Ht 182.9 cm; Wt 102.3 kg
[~2019-09-28 23:39] MED LIST changes: +CLOP75TA57 PO; +MELA3TAB4 PO; -MELA3TAB56 PO
--- NOTE | 2019-09-28 23:51 | PHYS DOC ---
Past History Past Medical History: Anemia, Anxiety, Arrhythmia, CAD, CHF, COPD, Diabetes, GI Bleed, Hypertension, MS, Renal Disease, Renal Failure, Vascular Disease, Other Additional Past Medical Histor: hx of hyperkalemia; wound rt heel Past Surgical History: Angioplasty, Coronary Bypass Surgery, Other Additional Past Surgical Histo: RIGHT ARM FISTULA, DUAL PACEMAKER; lillie leg fem- pop bypass Smoking: Cigarettes Alcohol Use: None Drug Use: None General Adult HPI: HPI: ".. I can't breath.. .. I am so short of breath... my legs are hurting.. they are so... swollen... ".. " I get dialysis tomorrow at [facility].. Sunday. and Fridays.. I usually go to [address] now when I am admitted... " Patient is a 59 year old male who presents with above hx and complaints of dyspnea, leg edema and leg pain. Patient states his leg pain shortness of breath is worse this weekend. Patient has extensive past medical history including anxiety, coronary artery disease, CHF, COPD, diabetes, GI bleeds, hypertension, myocardial infarction's, renal disease and on hemodialysis on Wednesdays and Fridays, severe peripheral vascular disease. History of recurrent episodes of pulmonary edema, vascular ulcers on right heel and generalized deconditioning. Patient has had multiple ED visits in the past for similar presentation. Patient previously transferred to [facility] after a similar episode. Patient states he has not been completing his dialysis treatments because of dropping blood pressures. Patient denies noncompliance with meds or diet. Patient follows with Dr. Espinosa. Patient rates his leg pain currently is 10 out of 10. Patient has had numerous stents and bypass surgeries to his lower legs per peripheral vascular disease. Patient does admit to noncompliance with tobacco use. Review of Systems: Review of Systems: Constitutional: Denies fever or chills Eyes: Denies change in visual acuity HENT: Denies nasal congestion or sore throat Respiratory: Complaints of shortness of breath Cardiovascular: Complaints of chest pain GI: Denies abdominal pain, nausea, vomiting, bloody stools or diarrhea : Denies dysuria Musculoskeletal: Denies back pain or joint pain Integument: Denies rash Neurologic: Denies headache, focal weakness or sensory changes Endocrine: Denies polyuria or polydipsia Lymphatic: Denies swollen glands Psychiatric: Denies depression or anxiety Heart Score: HEART Score for Chest Pain: HEART Score for Chest Pain Response (Comments) Value History Moderately Suspicious 1 ECG Nonspecific Repolarizatio 1 Age >45 - < 65 1 Risk Factors >3 Risk Factors or Hx CAD 2 Total 5 Risk Factors: Risk Factors: DM, Current or recent (<one month) smoker, HTN, HLP, family history of CAD, obesity. Risk Scores: Score 0 - 3: 2.5% MACE over next 6 weeks - Discharge Home Score 4 - 6: 20.3% MACE over next 6 weeks - Admit for Clinical Observation Score 7 - 10: 72.7% MACE over next 6 weeks - Early Invasive Strategies Family History: Family History: Noncontributory to current presentation Current Medications: Current Meds: See nursing for home meds Allergies: Allergies: Allergies Coded Allergies Type Severity Reaction Last Updated Verified gabapentin Allergy Intermediate 07/26/19 Yes nitroglycerin Allergy Intermediate 07/26/19 Yes NSAIDS (Non-Steroidal Anti-Inflamma Adverse Reaction Severe 07/13/19 Yes Physical Exam: PE: Constitutional: Moderately acute distress, chronically ill in appearance HENT: Normocephalic, atraumatic, bilateral external ears normal, oropharynx moist, no oral exudates, nose normal. [] Eyes: PERRLA, EOMI, conjunctiva normal, no discharge. [] Neck: Normal range of motion, no tenderness, supple, no stridor. JVD in the sitting position Cardiovascular: Tachycardia heart rate regular rhythm, no murmur [] PMI to the left Lungs & Thorax: Bilateral breath sounds equal apex with scattered wheezes and basilar crackles auscultation [] has pacer on the left. Midline scar Abdomen: Bowel sounds decreased, soft, no tenderness, no masses, no pulsatile masses. Old surgery scars Skin: Warm, dry, no erythema, no rash. [] Back: No tenderness, no CVA tenderness. [] Extremities: No tenderness, no cyanosis, no clubbing, ROM intact, 4+ edema to the knees . Old AV graft scars both arms right arm AV has good thrill Neurologic: Alert and oriented X 3, moves extremities on request,, decreased distal plantar sensory function, no focal deficits noted. [] Psychologic: Affect anxious, judgement normal, mood normal. [] EKG: EKG: My interpretation EKG shows a sinus tachycardia at 101. Left axis deviation, fascicular block, anterior septal changes but no findings of acute STEMI with contralateral changes. [] Radiology/Procedures: Radiology/Procedures: [][address] [address] IMAGING REPORT Signed PATIENT: RALPH TIJERINA ACCOUNT: [id number] : 1960 LOCATION: ER AGE: 59 SEX: M EXAM STATUS: REG ER ORD. PHYSICIAN: GRETCHEN SCHULTZ MD REASON: dyspnea, LOW LEGS SWELLING. PROCEDURE: PORTABLE CHEST 1V EXAM: AP View of the chest DATE: 09/28/2019 11:51 PM INDICATION: Dyspnea, lower extremity swelling COMPARISON: 07/26/2019, 07/21/2019 FINDINGS: Cardiac generator pack obscures a portion of the left chest with single lead in stable position. Changes of CABG are seen. The heart is mildly enlarged. Mediastinal and hilar contours are stable. Patchy opacities medial right lung base. Mild prominence of the central pulmonary vasculature. Trace left pleural effusion. No pneumothorax. IMPRESSION: Mild prominence of central pulmonary vasculature with patchy right perihilar/infrahilar opacities and trace pleural effusion, may represent changes of early pulmonary edema or multifocal consolidative process. Electronically signed by: Chester Allred MD (09/29/2019 12:38 AM) [facility] DICTATED AND SIGNED BY: CEHSTER ALLRED MD DATE: 09/29/19 0038 CC: GRETCHEN SCHULTZ MD; SUDHAKAR ESPINOSA ~ Course & Med Decision Making: Course & Med Decision Making Pertinent Labs and Imaging studies reviewed. (See chart for details) Discussed presentation, testing and treatment plan with Dr. SOOD. Transfer to [facility] for further treatment and hemodialysis. Critical care 90 Min. Impression: 1. Respiratory failure-hypoxia 2. Pulmonary edema 3. End-stage renal disease on hemodialysis Wednesdays and Fridays 4. Anemia 10.6 Hgb 5. Critical HyperKalemia 5,4 6. Elevated Trop 0.143 7. Elevated D-dimer 3.96 8. CHF -diastolic dysfunction BNP 68,720 9. Severe peripheral vascular disease 10. Tobacco abuse 11. Chronic pain 12. DM glu= 1231 [] Flaco Disclaimer: Flaco Disclaimer: This electronic medical record was generated, in whole or in part, using a voice recognition dictation system. Departure Departure: Disposition: 01 HOME/RESIDENCE PRIOR TO ADM Condition: STABLE Referrals: SUDHAKAR ESPINOSA (PCP) Flaco Disclaimer This chart was dictated in whole or in part using Voice Recognition software in a busy, high-work load, and often noisy Emergency Department environment. It may contain unintended and wholly unrecognized errors or omissions. GRETCHEN SCHULTZ MD Sep 28, 2019 23:50
[2019-09-29 00:20] LABS: BASO % 0 % (0-3); EOS # 0.3 x10^3/uL (0.0-0.7); EOS % 2 % (0-3); HEMATOCRIT 33.1 % (39.0-53.0); HEMOGLOBIN 10.8 g/dL (13.0-17.5); LYMPH % 9 % (24-48); MEAN CORPUSCULAR HEMOGLOBIN 31 pg (25-35); MEAN CORPUSCULAR HGB CONC 33 g/dL (31-37); MEAN CORPUSCULAR VOLUME 93 fL (79-100); MONO % 10 % (0-9); NEUT # 8.6 x10^3uL (1.8-7.7); NEUT % 79 % (31-73); PLATELET COUNT 356 x10^3/uL (140-400); RED BLOOD COUNT 3.54 x10^6/uL (4.30-5.70); RED CELL DISTRIBUTION WIDTH 16.4 % (11.5-14.5); WHITE BLOOD COUNT 10.9 x10^3/uL (4.0-11.0)
[2019-09-29] MEDS ORDERED: IPRATRPIUM/ALBUTEROL 0.5/2.5MG 3 ML NEBU. NEB ONE (00:30)
[2019-09-29] MEDS ORDERED: MORPHINE SULFATE 10 MG/ML SYRINGE. SQ ONE (00:30)
[2019-09-29 00:37] LABS: ALBUMIN 3.7 g/dL (3.4-5.0); CALCIUM 6.6 mg/dL (8.5-10.1); CREATININE 9.8 mg/dL (0.7-1.3); DIRECT BILIRUBIN 0.2 mg/dL (0.0-0.2); GFR 5.5; MAGNESIUM 1.9 mg/dL (1.8-2.4); POTASSIUM 5.4 mmol/L (3.5-5.1); TOTAL BILIRUBIN 0.7 mg/dL (0.2-1.0); TOTAL PROTEIN 8.5 g/dL (6.4-8.2)
--- NOTE | 2019-09-29 00:41 | RAD ---
EXAM: AP View of the chest DATE: 09/28/2019 11:51 PM INDICATION: Dyspnea, lower extremity swelling COMPARISON: 07/26/2019, 07/21/2019 FINDINGS: Cardiac generator pack obscures a portion of the left chest with single lead in stable position. Changes of CABG are seen. The heart is mildly enlarged. Mediastinal and hilar contours are stable. Patchy opacities medial right lung base. Mild prominence of the central pulmonary vasculature. Trace left pleural effusion. No pneumothorax. IMPRESSION: Mild prominence of central pulmonary vasculature with patchy right perihilar/infrahilar opacities and trace pleural effusion, may represent changes of early pulmonary edema or multifocal consolidative process. Electronically signed by: Chester Hemphill MD (09/29/2019 12:38 AM) [facility]
[2019-09-29 00:52] LABS: INFLUENZA A PATIENT NEGATIVE (NEGATIVE); INFLUENZA B PATIENT NEGATIVE (NEGATIVE)
[2019-09-29 00:57] LABS: BGAS PH 7.38 (7.35-7.46)
[2019-09-29] MEDS ORDERED: SODIUM BICARB ADULT 8.4% 50 MEQ/50 ML DISP.SYRIN. IV ONE (01:30)
[2019-09-29] MEDS ORDERED: CALCIUM CHLORIDE 1,000 MG/10 ML DISP.SYRIN IV ONE (01:30)
[2019-09-29] MEDS ORDERED: SODIUM POLYSTYRENE SULFONATE 15 GM/60 ML ORAL.SUSP. PO ONE (01:30)
[2019-09-29 01:50] VITALS: BP 178/111
--- NOTE | 2019-09-29 04:56 | EKG ---
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
== END 2019-09-29 02:23 | disposition short-term general hospital (02) ==
LOC: ER 23:39
DX: J96.91 Respiratory failure, unspecified with hypoxia (principal); Z20.828 Contact with and (suspected) exposure to other viral communicable diseases; E11.22 Type 2 diabetes mellitus with diabetic chronic kidney disease; I13.2 Hypertensive heart and chronic kidney disease with heart failure and with stage 5 chronic kidney disease, or end stage renal disease; I50.30 Unspecified diastolic (congestive) heart failure; N18.6 End stage renal disease; D64.9 Anemia, unspecified; E87.5 Hyperkalemia; R79.89 Other specified abnormal findings of blood chemistry; R79.1 Abnormal coagulation profile; I73.9 Peripheral vascular disease, unspecified; G89.29 Other chronic pain; J44.9 Chronic obstructive pulmonary disease, unspecified; I25.2 Old myocardial infarction; I25.810 Atherosclerosis of coronary artery bypass graft(s) without angina pectoris; Z98.61 Coronary angioplasty status; F17.210 Nicotine dependence, cigarettes, uncomplicated; Z99.2 Dependence on renal dialysis; Z88.6 Allergy status to analgesic agent; Z88.8 Allergy status to other drugs, medicaments and biological substances
CPT/HCPCS: 36415; 71045; 80048; 80076; 82550; 82803; 83605; 83690; 83735; 83880; 84443; 84484; 85025; 85379; 85730; 87040; 87070; 87635; 87804; 87880; 93005; 94640; 96372; 96374; 96375; 99291; 99292; J2270